=== PATIENT | female | born 1975 | race Caucasian/White ===

== ENCOUNTER 2025-04-18 08:06 | Day surgery (SDC) | payer OTHER ==
[~2025-04-18] VITALS: Ht 149.9 cm; Wt 57.7 kg
[2025-04-18] VITALS (9 sets, daily range): BP systolic 88–165; BP diastolic 60–113
[~2025-04-18 08:06] MED LIST: CALC.25 PO; CALCA500CH PO; CHOL10002 PO
[2025-04-18] MEDS ORDERED: LEVOTHYROXINE50 MC9 PO (08:58)
--- NOTE | 2025-04-18 09:10 | NUR ---
04/18/25 0910 Mercy Raines MONITOR INTACT WITH CONTINUOUS PULSE OXIMETRY, CONTINUOUS END TITAL CO2, 3-LEAD EKG AND INTERMITTENT BLOOD PRESSURE.
--- NOTE | 2025-04-18 10:31 | NUR ---
DISCHARGE PT A&O4/VSS/RA/FOLLOWS COMMANDS/PLEASANT/DENIES PAIN AND NAUSEA, DC INS PROVIDED/COPY SENT, I DC'D, LEFT VIA WC WITH MOM AND SISTER TO GO HOME.
== END 2025-04-18 23:00 | disposition home or self-care (01) ==
LOC: ORSCMMR 08:06 → ORD 09:00 → ORSCMMR 12:45
PROVIDERS: Internal Medicine Gastroenterology
PROC: 0DBM8ZX Excision of Descending Colon, Via Natural or Artificial Opening Endoscopic, Diagnostic (ICD-10-PCS; principal; 2025-04-18 09:00)
PROC: 0DBH8ZX Excision of Cecum, Via Natural or Artificial Opening Endoscopic, Diagnostic (ICD-10-PCS; principal; 2025-04-18 09:00)
PROC: 0DBK8ZX Excision of Ascending Colon, Via Natural or Artificial Opening Endoscopic, Diagnostic (ICD-10-PCS; principal; 2025-04-18 09:00)
DX: Z12.11 Encounter for screening for malignant neoplasm of colon (principal); D12.0 Benign neoplasm of cecum; D12.2 Benign neoplasm of ascending colon; K63.5 Polyp of colon; Z80.0 Family history of malignant neoplasm of digestive organs; E20.9 Hypoparathyroidism, unspecified; G80.9 Cerebral palsy, unspecified; N18.9 Chronic kidney disease, unspecified; Z79.899 Other long term (current) drug therapy
CPT/HCPCS: 88305; J2704; J7120